=== PATIENT | male | born 1985 | race Caucasian/White ===

== ENCOUNTER 2018-11-11 10:42 | Observation (INO) | payer OTHER ==
[2018-11-11] MEDS ORDERED: ASPIRIN 81 MG PO STA (11:40)
[2018-11-11] MEDS ORDERED: NITROGLYCERIN OINT 1 INCH/GM PACKET TOPICAL STA (11:40)
--- NOTE | 2018-11-11 11:48 | ED ---
General Adult HPI - General Chief complaint: Chest Pain Stated complaint: chest pain/left arm Source: patient, RN notes reviewed Mode of arrival: wheelchair Limitations: no limitations - History of Present Illness Initial comments: Patient is a pleasant 32-year-old male presenting to the emergency Department with palpitations. Onset of symptoms was around a week ago. Symptoms have been intermittent. Symptoms were worse yesterday and this morning. Patient does feel like his discomfort is skipping. Patient does have some discomfort in his chest associated with this at times. Patient does feel near syncopal at times. Patient also has some mild discomfort relating to the left arm. No history of similar symptoms prior to this past week. No associated dyspnea or vomiting or diaphoresis. No leg pain or leg swelling. - Related Data Home Medications Medication Instructions Recorded Confirmed Ibuprofen [Motrin Ib] 400 mg PO Q6H PRN 11/11/18 11/11/18 Allergies Allergy/AdvReac Type Severity Reaction Status Date / Time No Known Allergies Allergy Verified 11/11/18 11:06 Review of Systems ROS Statement: Those systems with pertinent positive or pertinent negative responses have been documented in the HPI. ROS Other: All systems not noted in ROS Statement are negative. Constitutional: Denies: fever Eyes: Denies: eye pain ENT: Denies: ear pain Respiratory: Denies: cough Cardiovascular: Reports: chest pain, palpitations Endocrine: Denies: fatigue Gastrointestinal: Denies: abdominal pain Genitourinary: Denies: dysuria Musculoskeletal: Denies: back pain Skin: Denies: rash Neurological: Denies: weakness Past Medical History Past Medical History: No Reported History History of Any Multi-Drug Resistant Organisms: None Reported Past Surgical History: No Surgical Hx Reported Past Psychological History: No Psychological Hx Reported Smoking Status: Never smoker Past Alcohol Use History: Daily Past Drug Use History: None Reported General Exam Limitations: no limitations General appearance: alert, in no apparent distress Head exam: Present: atraumatic Eye exam: Present: normal appearance, PERRL ENT exam: Present: normal oropharynx Neck exam: Present: normal inspection Respiratory exam: Present: normal lung sounds bilaterally Cardiovascular Exam: Present: regular rate, normal rhythm Expanded Peripheral pulses: 2+: Radial (R), Radial (L) GI/Abdominal exam: Present: soft. Absent: tenderness Extremities exam: Present: normal inspection. Absent: pedal edema, calf tenderness Neurological exam: Present: alert Psychiatric exam: Present: normal affect, normal mood Skin exam: Present: normal color Course Vital Signs 11/11/18 11/11/18 11/11/18 10:51 11:22 12:30 Temperature 98.5 F Pulse Rate 71 62 Pulse Rate [ 50 L Ediphone Operator ] Respiratory 16 16 Rate Blood Pressure 108/70 117/71 O2 Sat by Pulse 100 100 Oximetry - Reevaluation(s) Reevaluation #1: 11/11/18 11:42 athletic monitor does show frequent PVCs. athletic monitor: Patient does have an event where his heart rhythm decreases to 46 on the monitor. This is sinus rhythm. Patient was placed on a potline monitor secondary to chest pain and to monitor for arrhythmias. EKG Findings - EKG Comments: EKG Findings:: Sinus rhythm at 66. PVC is present. IA 138. QRS 94. QT 416. QTC 436. Normal axis. Normal QRS. No acute ST change. Medical Decision Making - Medical Decision Making Patient reevaluated and symptom-free at this time. Patient and family updated on results and plan. Patient states he did have symptoms while in the emergency department when his heart rate dropped to 46. Case was discussed with Dr. reyes, covering for Dr. Alvarado, who will admit. Cardiology will be placed on consult. - Lab Data Result diagrams: 11/11/18 11:05 11/11/18 11:05 Lab Results 11/11/18 11/11/18 11/11/18 Range/Units 11:05 11:05 11:05 WBC 6.1 (3.8-10.6) k/uL RBC 5.22 (4.30-5.90) m/uL Hgb 15.6 (13.0-17.5) gm/dL Hct 46.7 (39.0-53.0) % MCV 89.4 (80.0-100.0) fL MCH 29.9 (25.0-35.0) pg MCHC 33.4 (31.0-37.0) g/dL RDW 12.8 (11.5-15.5) % Plt Count 218 (150-450) k/uL Neutrophils % 71 % Lymphocytes % 19 % Monocytes % 8 % Eosinophils % 2 % Basophils % 0 % Neutrophils # 4.3 (1.3-7.7) k/uL Lymphocytes # 1.1 (1.0-4.8) k/uL Monocytes # 0.5 (0-1.0) k/uL Eosinophils # 0.1 (0-0.7) k/uL Basophils # 0.0 (0-0.2) k/uL PT 10.7 (9.0-12.0) sec INR 1.0 (<1.2) APTT 25.8 (22.0-30.0) sec Sodium 142 (137-145) mmol/L Potassium 4.5 (3.5-5.1) mmol/L Chloride 107 (98-107) mmol/L Carbon Dioxide 25 (22-30) mmol/L Anion Gap 10 mmol/L BUN 19 (9-20) mg/dL Creatinine 1.02 (0.66-1.25) mg/dL Est GFR (CKD-EPI)AfAm >90 (>60 ml/min/1.73 sqM) Est GFR (CKD-EPI)NonAf >90 (>60 ml/min/1.73 sqM) Glucose 86 (74-99) mg/dL Calcium 9.9 (8.4-10.2) mg/dL Magnesium 2.0 (1.6-2.3) mg/dL Total Bilirubin 0.8 (0.2-1.3) mg/dL AST 21 (17-59) U/L ALT 30 (21-72) U/L Alkaline Phosphatase 58 (38-126) U/L Troponin I (0.000-0.034) ng/mL Total Protein 7.7 (6.3-8.2) g/dL Albumin 4.6 (3.5-5.0) g/dL TSH 3.640 (0.465-4.680) mIU/L Free T4 1.51 (0.78-2.19) ng/dL Free T3 pg/mL 3.5 (2.8-5.3) pg/ml 11/11/18 Range/Units 11:05 WBC (3.8-10.6) k/uL RBC (4.30-5.90) m/uL Hgb (13.0-17.5) gm/dL Hct (39.0-53.0) % MCV (80.0-100.0) fL MCH (25.0-35.0) pg MCHC (31.0-37.0) g/dL RDW (11.5-15.5) % Plt Count (150-450) k/uL Neutrophils % % Lymphocytes % % Monocytes % % Eosinophils % % Basophils % % Neutrophils # (1.3-7.7) k/uL Lymphocytes # (1.0-4.8) k/uL Monocytes # (0-1.0) k/uL Eosinophils # (0-0.7) k/uL Basophils # (0-0.2) k/uL PT (9.0-12.0) sec INR (<1.2) APTT (22.0-30.0) sec Sodium (137-145) mmol/L Potassium (3.5-5.1) mmol/L Chloride (98-107) mmol/L Carbon Dioxide (22-30) mmol/L Anion Gap mmol/L BUN (9-20) mg/dL Creatinine (0.66-1.25) mg/dL Est GFR (CKD-EPI)AfAm (>60 ml/min/1.73 sqM) Est GFR (CKD-EPI)NonAf (>60 ml/min/1.73 sqM) Glucose (74-99) mg/dL Calcium (8.4-10.2) mg/dL Magnesium (1.6-2.3) mg/dL Total Bilirubin (0.2-1.3) mg/dL AST (17-59) U/L ALT (21-72) U/L Alkaline Phosphatase (38-126) U/L Troponin I <0.012 (0.000-0.034) ng/mL Total Protein (6.3-8.2) g/dL Albumin (3.5-5.0) g/dL TSH (0.465-4.680) mIU/L Free T4 (0.78-2.19) ng/dL Free T3 pg/mL (2.8-5.3) pg/ml - Radiology Data Radiology results: report reviewed (Chest x-ray reported as no acute process. Unable to view films at this time.) Disposition Clinical Impression: Chest pain, Bradycardia Disposition: ADMITTED IP TO THIS HOSP Is patient prescribed a controlled substance at d/c from ED?: No Referrals: Renato Alvarado MD [Primary Care Provider] - 1-2 days Decision Time: 13:37
[2018-11-11 12:22] LABS: Basophils % (A) 0 %; Eosinophils # (A) 0.1 k/uL (0-0.7); Eosinophils % (A) 2 %; HCT 46.7 % (39.0-53.0); HGB 15.6 gm/dL (13.0-17.5); Lymphocytes # (A) 1.1 k/uL (1.0-4.8); Lymphocytes % (A) 19 %; MCH 29.9 pg (25.0-35.0); MCHC 33.4 g/dL (31.0-37.0); MCV 89.4 fL (80.0-100.0); Mean Platelet Volume 7.6; Monocytes # (A) 0.5 k/uL (0-1.0); Monocytes % (A) 8 %; Neutrophils # (A) 4.3 k/uL (1.3-7.7); Neutrophils % (A) 71 %; Platelet Count 218 k/uL (150-450); RBC 5.22 m/uL (4.30-5.90); RDW 12.8 % (11.5-15.5); WBC 6.1 k/uL (3.8-10.6)
[2018-11-11 12:29] LABS: ALT 30 U/L (21-72); AST 21 U/L (17-59); Albumin 4.6 g/dL (3.5-5.0); Alkaline Phosphatase 58 U/L (38-126); Anion Gap 10 mmol/L; Blood Urea Nitrogen 19 mg/dL (9-20); Calcium 9.9 mg/dL (8.4-10.2); Carbon Dioxide 25 mmol/L (22-30); Chloride 107 mmol/L (98-107); Glucose 86 mg/dL (74-99); Potassium 4.5 mmol/L (3.5-5.1); Sodium 142 mmol/L (137-145); Total Bilirubin 0.8 mg/dL (0.2-1.3); Total Protein 7.7 g/dL (6.3-8.2)
--- NOTE | 2018-11-11 12:44 | XR ---
EXAMINATION TYPE: XR chest 2V DATE OF EXAM: 11/11/2018 COMPARISON: NONE HISTORY: Dysrhythmia left arm weakness for one week. TECHNIQUE: Frontal and lateral views of the chest are obtained. FINDINGS: Overlying EKG leads are seen. There is no focal air space opacity, pleural effusion, or pne umothorax seen. The cardiac silhouette size is within normal limits. The osseous structures are in tact. IMPRESSION: No acute cardiopulmonary process.
[2018-11-11 12:45] LABS: T4, Free (Free Thyroxine) 1.51 ng/dL (0.78-2.19)
[2018-11-11 13:16] LABS: Partial Thromboplastin Time 25.8 sec (22.0-30.0); Prothrombin Time 10.7 sec (9.0-12.0)
[2018-11-11] MEDS ORDERED: NITROGLYCERIN SL TABS 0.4 MG TAB SUBLINGUAL PRN (13:38)
[2018-11-11] MEDS ORDERED: ACETAMINOPHEN TAB 325 MG TAB PO STA (18:31)
[2018-11-11 20:33] VITALS: BMI 28.0
--- NOTE | 2018-11-11 22:28 | HP ---
HISTORY AND PHYSICAL DATE OF ADMISSION: 11/11/2018 PRESENTING COMPLAINT: Palpitation, near syncope. HISTORY OF PRESENTING COMPLAINT: Pleasant 32-year-old patient of Dr. Renato Alvarado otherwise in good health. The patient 2 weeks ago was on vacation and felt palpitations. The patient went down to the [facility]. He was told he has PVCs and not to worry about it. The patient drinks a variable amount of alcohol and drinks quite a bit of energy drinks including monster. The patient's last 2 to 3 days started having episodes of nearly passing out, feeling fuzzy and therefore decided to come in. The patient found to have multiple PVCs though unifocal. Admitted for the same. The patient denies use of any other recreational drugs. The patient's heart rate was found to be in the 40s, but the patient has been extremely active, was very active in school and also worked in the [employer] and has got a very active in a physical job and is in good health otherwise. Several family members are present including his girlfriend, his daughter, his mother, uncle and aunt. REVIEW OF SYSTEMS: CONSTITUTIONAL: Tired. HEENT: None. CARDIOVASCULAR: As above GASTROINTESTINAL none. GENITOURINARY: None. MUSCULOSKELETAL none. DERMATOLOGICAL, HEMATOLOGIC, LYMPHATIC: none. PSYCHIATRY none. NEUROLOGICAL none. PAST MEDICAL HISTORY: None. SURGICAL HISTORY: None. PSYCH HISTORY: History of ADHD. SOCIAL HISTORY: The patient stopped smoking in 2012. Drinks a variable amount of alcohol and does a lot of energy drinks. The patient is employed. 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 Drives [employer]. FAMILY HISTORY: Of myocardial infarction. Father had heart disease. HOME MEDICATIONS: Motrin 400 mg q.6h p.r.n. ALLERGIES: None. PHYSICAL EXAMINATION: VITAL SIGNS: Temperature 98.4 pulse 46, respiration 18, blood pressure 113/71, pulse ox 100 percent on room air. GENERAL APPEARANCE: Average built, sitting up, comfortable. EYES: Pupils equal. Conjunctivae normal. External appearance of nose and ears normal. Oral cavity normal. NECK: JVD not raised. Mass not palpable. RESPIRATORY EFFORT: Normal. LUNGS are clear. CARDIOVASCULAR: 1st and 2nd sounds normal. No edema. ABDOMEN: Soft, nontender. Liver and spleen not palpable. Lymphatics: No lymph node palpable in the neck or axilla. PSYCHIATRY: Alert and oriented x3. Mood and affect normal. NEUROLOGICAL: Pupils equal. Cranial nerves grossly intact. Power and sensation grossly intact. INVESTIGATIONS: White count 6.1, hemoglobin 15.6, potassium 4.5, BUN and creatinine normal. Troponin times negative. TSH normal. EKG tracing personally reviewed by me shows multiple PVCs were unifocal. Chest x-ray film personally reviewed by me shows normal heart size and lung oropeza are clear. ASSESSMENT: 1. The patient with multiple PVCs symptomatic in a patient who does drink alcohol and has a lot of energy drinks including monster and these are symptomatic PVCs. 2. Physiological bradycardia in a patient who has been rather healthy and very active. PLAN: Patient will need a 2-D echocardiogram. The patient may need to use a p.r.n. small dose of beta emy given heart rate is running in the 40s. The patient and the family were advised at length to stop all aerosol stimulants, including any most extent and refrain from alcohol totally. We will get a cardiology opinion. If the patient's symptoms continue to be a problem, then patient may need EP study down the road. Copy to Dr. Alvarado. MMKATHE / MARYN: [id number] /
[2018-11-12 01:28] LABS: Cholesterol 198 mg/dL (<200); HDL Cholesterol 50 mg/dL (40-60); LDL Cholesterol,Calculated 122 mg/dL (0-99); Triglycerides 129 mg/dL (<150)
[2018-11-12] MEDS ORDERED: ASPIRIN 325 MG TAB PO SCH (09:00)
[2018-11-12 09:01] VITALS: RESP 18
--- NOTE | 2018-11-12 10:42 | P.CRDCN ---
History of Present Illness History of present illness: This is a pleasant 32-year-old male with no significant past medical history. He is a former smoker, quit 2012. He denies history of coronary artery disease, hypertension, dyslipidemia or diabetes mellitus. We have been asked to see him in consultation for chest pain. He states starting last week Thursday he started feeling frequent palpitations and fluttering in his chest. He woke up feeling that way with no specific aggravating factors. With each palpitation he also felt a tightening sensation in his chest, light headed and short of breath. Generally overall throughout the day he felt sluggish. He drank water and tried to take it easy through the day but the symptoms p persisted. [place] was [place] during that time so he decided to go to the hospital to be checked out. Per the patient he states he was hooked up to the monitor and told he is having PVCs and was discharged home. The symptoms have persisted since that time. He has no specific aggravating or alleviating factors. He states both his father and grandfather both had a history of premature coronary artery disease. EKG reveals sinus mechanism with frequent PVCs, trigeminy noted. Telemetry tracings reveal PVC's as well. Chest x-ray negative for an acute cardiopulmonary process. Laboratory data reviewed, WBC 6.1, hemoglobin 15.6, platelets 218, d-dimer less than 0.17, sodium 142, potassium 4.5, creatinine 1.02, magnesium 2.0, cardiac enzymes negative 3, LDL 122, HDL 50, TSH 3.64. He takes no daily cardiac medications. At the time of my exam: CONSTITUTIONAL: Denies fever. Denies chills. Complains of overall generalized weakness and fatigue. EYES: Denies blurred vision. Denies vision changes. Denies eye pain. EARS, NOSE, MOUTH & THROAT: Denies headache. Denies sore throat. Denies ear pain. CARDIOVASCULAR: Denies chest pain. Denies shortness of breath. Denies orthopnea. Denies PND. Complains of palpitations. RESPIRATORY: Denies cough. GASTROINTESTINAL: Denies abdominal pain. Denies diarrhea. Denies constipation. Denies nausea. Denies vomiting. MUSCULOSKELETAL: Denies myalgias. INTEGUMENTARY: Denies pruitis. Denies rash. NEUROLOGIC: Denies numbness. Denies tingling. Denies weakness. PSYCHIATRIC: Denies anxiety. Denies depression. ENDOCRINE: Denies fatigue. Denies weight change. Denies polydipsia. Denies polyurina. GENITOURINARY: Denies burning, hematuria or urgency with micturation. HEMATOLOGIC: Denies history of anemia. Denies bleeding. Blood pressure 101/59 heart rate 64 afebrile maintaining oxygen saturation on room air GENERAL: This is a 32-year-old male in no apparent distress at the time of my examination. HEENT: Head is atraumatic, normocephalic. Pupils are equal, round. Sclerae anicteric. Conjunctivae are clear. Mucous membranes of the mouth are moist. Neck is supple. There is no jugular venous distention. No carotid bruit is heard. LUNGS: Clear to auscultation no wheezes, rales or rhonchi. No chest wall tenderness is noted on palpation or with deep breathing. HEART: Regular rate and rhythm without murmurs, rubs or gallops. S1 and S2 heard. ABDOMEN: Soft, nontender. Bowel sounds are heard. No organomegaly noted. EXTREMITIES: No evidence of peripheral edema and no calf tenderness noted. VASCULAR: Radial and dorsalis pedis pulses palpated, no evidence of clubbing. NEUROLOGIC: Patient is awake, alert and oriented x3. ASSESSMENT Chest pain, atypical for angina. An acute coronary event has been ruled out. Palpitations, frequent PVCs noted on EKG PLAN An acute coronary event has been ruled out. Obtain 2D echocardiogram and doppler study to assess cardiac structure and function. Electrolytes and thyroid are normal. Perform exercise stress test to assess for PVC's at maximum exercise as well as stress induced ischemic changes on EKG. If stress test is normal he is stable for discharge with a 24-hr holter monitor to assess frequency of PVC's. Follow up in the office with Dr. Gómez in 2 weeks. Thank you kindly for this consultation. Nurse Practitioner note has been reviewed, I agree with a documented findings and plan of care. Patient was seen and examined. Past Medical History Past Medical History: No Reported History History of Any Multi-Drug Resistant Organisms: None Reported Past Surgical History: No Surgical Hx Reported Past Anesthesia/Blood Transfusion Reactions: Unable to Obtain Additional Past Anesthesia/Blood Transfusion Reaction / Comment(s): Pt. has never had surgery or blood transfusion Past Psychological History: ADD/ADHD Smoking Status: Former smoker Past Alcohol Use History: Daily Additional Past Alcohol Use History / Comment(s): Pt. states that he stopped smoking in 2012. He smoked about a pack per day. Past Drug Use History: None Reported - Past Family History Father Family Medical History: Chest Pain / Angina, Myocardial Infarction ([place]) Additional Family Medical History / Comment(s): Father has heart disease Medications and Allergies Home Medications Medication Instructions Recorded Confirmed Type Ibuprofen [Motrin Ib] 400 mg PO Q6H PRN 11/11/18 11/11/18 History Allergies Allergy/AdvReac Type Severity Reaction Status Date / Time No Known Allergies Allergy Verified 11/11/18 11:06 Physical Exam Vitals: Vital Signs Temp Pulse Pulse Resp BP BP Pulse Ox 11/12/18 03:54 98.5 F 90 16 118/72 100 11/12/18 03:37 62 16 11/11/18 23:59 62 16 11/11/18 23:46 98.3 F 62 16 125/76 99 11/11/18 20:00 46 L 18 11/11/18 19:49 98.4 F 46 L 18 113/71 100 11/11/18 19:00 98.0 F 84 18 116/76 99 11/11/18 18:34 70 16 124/69 100 11/11/18 16:45 69 14 99/66 100 11/11/18 15:41 67 16 115/79 100 11/11/18 12:30 62 16 117/71 100 11/11/18 11:22 50 L 11/11/18 10:51 98.5 F 71 16 108/70 100 Intake and Output 11/11/18 11/12/18 11/12/18 22:59 06:59 14:59 Other: # Voids 1 1 Results 11/11/18 11:05 11/11/18 11:05 Cardiac Enzymes 11/11/18 11/11/18 11/11/18 Range/Units 11:05 11:05 17:17 AST 21 (17-59) U/L Troponin I <0.012 <0.012 (0.000-0.034) ng/mL 11/11/18 Range/Units 23:23 AST (17-59) U/L Troponin I <0.012 (0.000-0.034) ng/mL Coagulation 11/11/18 Range/Units 11:05 PT 10.7 (9.0-12.0) sec APTT 25.8 (22.0-30.0) sec Lipids 11/11/18 Range/Units 11:05 Triglycerides 129 (<150) mg/dL Cholesterol 198 (<200) mg/dL HDL Cholesterol 50 (40-60) mg/dL CBC 11/11/18 Range/Units 11:05 WBC 6.1 (3.8-10.6) k/uL RBC 5.22 (4.30-5.90) m/uL Hgb 15.6 (13.0-17.5) gm/dL Hct 46.7 (39.0-53.0) % Plt Count 218 (150-450) k/uL Comprehensive Metabolic Panel 11/11/18 Range/Units 11:05 Sodium 142 (137-145) mmol/L Potassium 4.5 (3.5-5.1) mmol/L Chloride 107 (98-107) mmol/L Carbon Dioxide 25 (22-30) mmol/L BUN 19 (9-20) mg/dL Creatinine 1.02 (0.66-1.25) mg/dL Glucose 86 (74-99) mg/dL Calcium 9.9 (8.4-10.2) mg/dL AST 21 (17-59) U/L ALT 30 (21-72) U/L Alkaline Phosphatase 58 (38-126) U/L Total Protein 7.7 (6.3-8.2) g/dL Albumin 4.6 (3.5-5.0) g/dL Current Medications Generic Name Dose Route Start Last Admin Trade Name Darrickq PRN Reason Stop Dose Admin Aspirin 325 mg 11/12/18 09:00 Aspirin PO DAILY STACEY Nitroglycerin 0.4 mg 11/11/18 13:38 Nitrostat SUBLINGUAL Q5M PRN Chest Pain Sodium Chloride 10 ml 11/11/18 21:00 11/11/18 23:22 Saline Flush IV 10 ml BID STACEY Administration Intake and Output 11/11/18 11/12/18 11/12/18 22:59 06:59 14:59 Other: # Voids 1 1 11/11/18 11:05 11/11/18 11:05
[2018-11-12 12:16] VITALS: BP 104/70; PULSE 65; TEMP 98.2
--- NOTE | 2018-11-12 13:08 | EST ---
EXERCISE STRESS DATE OF SERVICE: 11/12/2018 AGE: 32 SEX: Male HT: 76 WT: 230 PROTOCOL: Shady STAGE: III DURATION OF EXERCISE: 9 minutes HEART RATE REST: 83 BLOOD PRESSURE REST: 115/74 MAXIMUM HEART RATE ACHIEVED: 164 MAXIMUM BLOOD PRESSURE: 169/68 85% MPHR: 161 100% MPHR: 189 METS: 10.3 INDICATIONS: Chest pain. CLINICAL INFORMATION: STRESS DATA: Pretesting physical examination showed a heart rate of 83, pressure is 115/74 mmHg. Baseline EKG showed sinus mechanism. The patient exercised on the treadmill according to Shady protocol for a total of a 9 minutes and achieved 10.3 METs. Max heart rate was 164, which is about 87% of maximum predicted heart rate. Maximum blood pressure was 169/86 mmHg. Clinically, the patient did not have any symptoms of chest pain or discomfort and the EKG did not show any significant ST or T- wave abnormalities concerning for ischemia. CONCLUSION: 1. Excellent exercise tolerance. 2. Normal EKG in response to exercise. 3. Essentially normal stress test for the patient. MMODL / IJN: [id number] /
--- NOTE | 2018-11-12 18:38 | ECHOF ---
Referral Reason:cp MEASUREMENTS -------- HEIGHT: 193.0 cm WEIGHT: 104.3 kg BP: 118/72 RVIDd: 3.2 cm (< 3.3) IVSd: 1.1 cm (0.6 - 1.1) LVIDd: 4.7 cm (3.9 - 5.3) LVPWd: 1.1 cm (0.6 - 1.1) IVSs: 1.4 cm LVIDs: 3.2 cm LVPWs: 1.4 cm LAESV Index (A-L): 18.98 ml/m Ao Diam: 2.9 cm (2.0 - 3.7) AV Cusp: 2.2 cm (1.5 - 2.6) LA Diam: 3.4 cm (2.7 - 3.8) EPSS: 0.5 cm MV E Josiah: 0.76 m/s MV DecT: 244 ms MV A Josiah: 0.61 m/s MV E/A Ratio: 1.25 RAP: 5.00 mmHg RVSP: 16.53 mmHg MV EF SLOPE: 160.96 mm/s (70 - 150) MV EXCURSION: 2.31 cm (> 18.000) FINDINGS -------- Resting bradycardia (HR<60bpm). This was a technically good study. The left ventricular size is normal. There is borderline concentric left ventricular hypertrophy. Overall left ventricular systolic function is low-normal with, an EF between 50 - 55 %. The right ventricle is normal in size and function. Normal LA size by volume 22+/-6 ml/m2. The right atrium is normal in size. The aortic valve is trileaflet, and appears structurally normal. No aortic stenosis or regurgitation. The mitral valve leaflets are mildly thickened. There is trace mitral regurgitation. Trace tricuspid regurgitation present. Right ventricular systolic pressure is normal at < 35 mmHg. There is no evidence of pulmonary hypertension. Trace/mild (physiologic) pulmonic regurgitation. The aortic root size is normal. Normal inferior vena cava with normal inspiratory collapse consistent with estimated right atrial pre ssure of 5 mmHg. There is no pericardial effusion. CONCLUSIONS -------- 1. Resting bradycardia (HR<60bpm). 2. This was a technically good study. 3. The left ventricular size is normal. 4. There is borderline concentric left ventricular hypertrophy. 5. Overall left ventricular systolic function is low-normal with, an EF between 50 - 55 %. 6. Normal LA size by volume 22+/-6 ml/m2. 7. The aortic valve is trileaflet, and appears structurally normal. No aortic stenosis or regurgitati on. 8. The mitral valve leaflets are mildly thickened. 9. There is trace mitral regurgitation. 10. Trace tricuspid regurgitation present. 11. Right ventricular systolic pressure is normal at < 35 mmHg. 12. There is no evidence of pulmonary hypertension. 13. Trace/mild (physiologic) pulmonic regurgitation. 14. The aortic root size is normal. 15. There is no pericardial effusion. HERPETOLOGY TEACHER: Jose Manuel Nolasco RDCS
--- NOTE | 2018-11-14 08:46 | DS ---
DISCHARGE SUMMARY DATE OF ADMISSION: November 11, 2018. DATE OF DISCHARGE: November 12, 2018. FINAL DIAGNOSES: 1. Multiple symptomatic PVCs precipitated by alcohol and energy drinks. 2. Physiological bradycardia in a patient who is otherwise very active. HOSPITAL COURSE: This patient presented with episodes of palpitation, near syncope. The patient does drink some alcohol and does energy drinks. The patient was seen by Cardiology, Dr. Gómez, who did 2D echocardiogram. Showed the EF of 50-55 percent, otherwise unremarkable. The patient also had a stress test that was negative. Did tell the nurse to get from Cardiology activity orders for discharge. On examination, temperature 98.2, pulse 64, respiratory 18, blood pressure 104/70, pulse ox 100 percent on room air. Lungs are clear. Cardiovascular: 1st and 2nd sounds normal. INVESTIGATION: Troponins are negative. TSH is normal. The patient is advised against use of alcohol or any form of energy drinks. The patient was cleared by Cardiology. DISCHARGE MEDICATIONS: Motrin 400 mg p.r.n. FOLLOW UP: Follow up with Dr. Gómez on November 30, 2018; follow up with Dr. Renato Alvarado in 3 days. MMODL / IJN: [id number] /
== END 2018-11-12 14:17 | disposition home or self-care (01) ==
LOC: EC 10:42 → 1SOBS 13:39
PROVIDERS: ADMIT Hospitalist; ATTEND Hospitalist
DX: I49.3 Ventricular premature depolarization (principal); R07.89 Other chest pain; F15.90 Other stimulant use, unspecified, uncomplicated; Z72.89 Other problems related to lifestyle; R00.8 Other abnormalities of heart beat; F90.9 Attention-deficit hyperactivity disorder, unspecified type; R55 Syncope and collapse; R42 Dizziness and giddiness; R06.02 Shortness of breath; Z87.891 Personal history of nicotine dependence; Z82.49 Family history of ischemic heart disease and other diseases of the circulatory system
CPT/HCPCS: 99285; 36415; 93005; 93017; 93225; 93226; 93306; 85379; 84439; 84481; 80061; 80053; 83735; 84443; 84484; 85025; 85610; 85730; 71046; G0378 ×2

== ENCOUNTER 2019-04-02 15:54 | Emergency (ER) | payer OTHER ==
[2019-04-02 16:34] VITALS: RESP 16
[2019-04-02 16:39] LABS: Basophils % (A) 0 %; Eosinophils # (A) 0.1 k/uL (0-0.7); Eosinophils % (A) 1 %; HCT 41.9 % (39.0-53.0); HGB 14.1 gm/dL (13.0-17.5); Lymphocytes # (A) 1.9 k/uL (1.0-4.8); Lymphocytes % (A) 28 %; MCH 28.7 pg (25.0-35.0); MCHC 33.6 g/dL (31.0-37.0); MCV 85.6 fL (80.0-100.0); Mean Platelet Volume 8.3; Monocytes # (A) 0.5 k/uL (0-1.0); Monocytes % (A) 7 %; Neutrophils # (A) 4.2 k/uL (1.3-7.7); Neutrophils % (A) 62 %; Platelet Count 227 k/uL (150-450); RDW 14.1 % (11.5-15.5); WBC 6.9 k/uL (3.8-10.6)
--- NOTE | 2019-04-02 16:51 | XR ---
EXAMINATION TYPE: XR chest 2V DATE OF EXAM: 04/02/2019 COMPARISON: 11/11/2018 HISTORY: Short of breath TECHNIQUE: Frontal and lateral views of the chest are obtained. FINDINGS: Heart and mediastinum are normal. Lungs are clear. Diaphragm is normal. Bony thorax appear s normal. There are chest leads. IMPRESSION: Normal chest. No change.
[2019-04-02 16:54] LABS: D-Dimer <0.17 mg/L FEU (<0.60); Partial Thromboplastin Time 25.3 sec (22.0-30.0); Prothrombin Time 10.7 sec (9.0-12.0)
--- NOTE | 2019-04-02 17:02 | ED ---
Chest Pain HPI - General Chief Complaint: Chest Pain Stated Complaint: SOB Time Seen by Provider: 04/02/19 16:19 Source: patient, RN notes reviewed, old records reviewed Mode of arrival: ambulatory Limitations: no limitations - History of Present Illness Initial Comments: This is a 31-year-old male the ER for evaluation. Patient resents today for evaluation of chest pain chest pain anxiety palpitations. PVCs history of PVCs. Patient states he is on any medication with PVCs as he is to lower heart rate. Patient has had prior evaluation by cardiology and 18. No intervention done at this point. Patient a symptomatically currently MD Complaint: chest pain, other (Anxiety and palpitations) -: hour(s) Onset: during rest, during exertion Pain Location: substernal Severity: mild Quality: other (Palpitations) Consistency: intermittent Improves With: nothing Anginal Symptoms: nausea Other Symptoms: palpitations Treatments Prior to Arrival: none - Related Data Home Medications Medication Instructions Recorded Confirmed No Known Home Medications 04/02/19 04/02/19 Allergies Allergy/AdvReac Type Severity Reaction Status Date / Time No Known Allergies Allergy Verified 04/02/19 16:52 Review of Systems ROS Statement: Those systems with pertinent positive or pertinent negative responses have been documented in the HPI. ROS Other: All systems not noted in ROS Statement are negative. EKG Findings - EKG Comments: EKG Findings:: EKG shows sinus bradycardia rate 48 [place] 144 QRS 94 QTc 362 Past Medical History Past Medical History: No Reported History Additional Past Medical History / Comment(s): PVC's History of Any Multi-Drug Resistant Organisms: None Reported Past Surgical History: No Surgical Hx Reported Past Anesthesia/Blood Transfusion Reactions: Unable to Obtain Additional Past Anesthesia/Blood Transfusion Reaction / Comment(s): Pt. has never had surgery or blood transfusion Past Psychological History: No Psychological Hx Reported Smoking Status: Former smoker Past Alcohol Use History: Occasional Past Drug Use History: None Reported - Past Family History Father Family Medical History: Chest Pain / Angina, Myocardial Infarction ([place]) Additional Family Medical History / Comment(s): Father has heart disease General Exam Limitations: no limitations General appearance: alert, in no apparent distress Head exam: Present: atraumatic, normocephalic, normal inspection Eye exam: Present: normal appearance, PERRL, EOMI. Absent: scleral icterus, conjunctival injection, periorbital swelling ENT exam: Present: normal exam, mucous membranes moist Neck exam: Present: normal inspection. Absent: tenderness, meningismus, lymphadenopathy Respiratory exam: Present: normal lung sounds bilaterally. Absent: respiratory distress, wheezes, rales, rhonchi, stridor Cardiovascular Exam: Present: regular rate, normal rhythm, normal heart sounds. Absent: systolic murmur, diastolic murmur, rubs, gallop, clicks GI/Abdominal exam: Present: soft, normal bowel sounds. Absent: distended, tenderness, guarding, rebound, rigid Extremities exam: Present: normal inspection, full ROM, normal capillary refill. Absent: tenderness, pedal edema, joint swelling, calf tenderness Back exam: Present: normal inspection Neurological exam: Present: alert, oriented X3, CN II-XII intact Psychiatric exam: Present: normal affect, normal mood Skin exam: Present: warm, dry, intact, normal color. Absent: rash Course Vital Signs 04/02/19 04/02/19 04/02/19 16:02 16:28 18:38 Temperature 98.7 F 98.0 F Pulse Rate 62 76 Respiratory 18 16 16 Rate Blood Pressure 104/66 116/73 O2 Sat by Pulse 100 99 Oximetry - Reevaluation(s) Reevaluation #1: Records reviewed Patient with occasional PVCs No current chest pain, spoke with patient at length, patient will like discharge, will continue follow-up with cardiology as directed Chest Pain MDM - MDM 33 male the ER with history of PVCs coming in with chest pain palpitations anxiety. Symptoms improved here currently. Patient is no acute findings and c an be discharged home Disposition Clinical Impression: Chest pain, Bradycardia, PVC (premature ventricular contraction) Disposition: HOME SELF-CARE Condition: Good Instructions (If sedation given, give patient instructions): Chest Pain (ED), Premature Ventricular Contractions (ED) Is patient prescribed a controlled substance at d/c from ED?: No Referrals: Renato Alvarado MD [Primary Care Provider] - 1-2 days
[2019-04-02 17:04] LABS: ALT 33 U/L (21-72); AST 22 U/L (17-59); African American GFR (CKD) >90 (>60 ml/min/1.73 sqM); Albumin 4.7 g/dL (3.5-5.0); Alkaline Phosphatase 56 U/L (38-126); Anion Gap 10 mmol/L; Blood Urea Nitrogen 22 mg/dL (9-20); Calcium 9.9 mg/dL (8.4-10.2); Carbon Dioxide 24 mmol/L (22-30); Chloride 107 mmol/L (98-107); Glucose 88 mg/dL (74-99); Potassium 3.8 mmol/L (3.5-5.1); Sodium 141 mmol/L (137-145); Total Bilirubin 0.5 mg/dL (0.2-1.3); Total Protein 7.6 g/dL (6.3-8.2)
[2019-04-02 18:39] VITALS: BP 116/73; PULSE 76; TEMP 98
== END 2019-04-02 18:38 | disposition home or self-care (01) ==
LOC: EC 15:54
DX: I49.3 Ventricular premature depolarization (principal); R00.1 Bradycardia, unspecified; Z87.891 Personal history of nicotine dependence
CPT/HCPCS: 36415; 71046; 80053; 83690; 83735; 83880; 84484; 85025; 85379; 85610; 85730; 93005; 99285

== ENCOUNTER 2019-05-02 | Emergency (ER) | payer OTHER ==
--- NOTE | 2019-05-02 11:37 | ED ---
General Adult HPI - General Chief complaint: Shortness of Breath Stated complaint: SOB/left arm & leg pain Time Seen by Provider: 05/02/19 10:55 Source: patient, RN notes reviewed Mode of arrival: ambulatory Limitations: no limitations - History of Present Illness Initial comments: This is a 33-year-old male who presents emergency Department stating he is has been having shortness of breath along with PVCs since October. 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 Patient states everything is shown to be normal. Patient states he has no more PVCs as of late but he still is waking up in the middle night feeling short of breath and feeling very nervous about going back to sleep. Patient states during the day especially when exerting himself or working he does not notice any shortness of breath. Patient occasionally says he did some chest tightness when he short of breath but currently he states he has no chest pain he had no chest pain today. Patient denies any shortness of breath currently but states he had it just prior to arrival but it has since resolved. Patient denies any recent fever chills or cough. Patient denies lightheadedness dizziness or nursing episode. Patient denies any calf pain or leg swelling. Patient states he spends a lot of time on the Internet trying to figure out what it is that is wrong with him. Patient currently is talking a mile a minute without any sign of being short of breath - Related Data Home Medications Medication Instructions Recorded Confirmed Ibuprofen [Motrin Ib] 400 mg PO Q6H PRN 05/02/19 05/02/19 Allergies Allergy/AdvReac Type Severity Reaction Status Date / Time No Known Allergies Allergy Verified 05/02/19 11:36 Review of Systems ROS Statement: Those systems with pertinent positive or pertinent negative responses have been documented in the HPI. ROS Other: All systems not noted in ROS Statement are negative. Past Medical History Past Medical History: No Reported History Additional Past Medical History / Comment(s): PVC's History of Any Multi-Drug Resistant Organisms: None Reported Past Surgical History: No Surgical Hx Reported Past Anesthesia/Blood Transfusion Reactions: Unable to Obtain Additional Past Anesthesia/Blood Transfusion Reaction / Comment(s): Pt. has never had surgery or blood transfusion Past Psychological History: Anxiety Smoking Status: Former smoker Past Alcohol Use History: Occasional Past Drug Use History: None Reported - Past Family History Father Family Medical History: Chest Pain / Angina, Myocardial Infarction ([place]) Additional Family Medical History / Comment(s): Father has heart disease General Exam - General Exam Comments Initial Comments: GENERAL: Patient is well-developed and well-nourished. Patient is nontoxic and well- hydrated and is in no acute distress. Patient appears very anxious ENT: Neck is soft and supple. No significant lymphadenopathy is noted. Oropharynx is clear. Moist mucous membranes. Neck has full range of motion without eliciting any pain. EYES: The sclera were anicteric and conjunctiva were pink and moist. Extraocular movements were intact and pupils were equal round and reactive to light. Eyelids were unremarkable. PULMONARY: Unlabored respirations. Good breath sounds bilaterally. No audible rales rhonchi or wheezing was noted. CARDIOVASCULAR: There is a regular rate and rhythm without any murmurs gallops or rubs. ABDOMEN: Soft and nontender with normal bowel sounds. SKIN: Skin is clear with no lesions or rashes and otherwise unremarkable. NEUROLOGIC: Patient is alert and oriented x3. Cranial nerves II through XII are grossly intact. Motor and sensory are also intact. Normal speech, volume and content. Symmetrical smile. MUSCULOSKELETAL: Normal extremities with adequate strength and full range of motion. LYMPHATICS: No significant lymphadenopathy is noted PSYCHIATRIC: Patient appears very anxious. Limitations: no limitations Course Vital Signs 05/02/19 10:45 Temperature 98.5 F Pulse Rate 66 Respiratory 18 Rate Blood Pressure 115/70 O2 Sat by Pulse 100 Oximetry Medical Decision Making - Medical Decision Making Patient's EKG shows sinus bradycardia at 46 bpm [place] interval is 140 QRS is 94 Q-T intervals 422 QTC is 369. Patient's EKG shows no ST segment elevation or depression. I compared this EKG to an old EKG no significant changes are noted. I did review all the patient's prior visits as well as labs and x-rays and found no abnormality. I spoke with the patient he states that the [facility] has suggested he get on an antianxiety medication and he has an appointment tomorrow to follow up with his primary. I suggest the follow-up with a pulmonary doctor to make sure his lung functions are okay and he will do that tomorrow. Patient is completely asymptomatic throughout his ED stay. Disposition Clinical Impression: Dyspnea Disposition: HOME SELF-CARE Condition: Good Instructions (If sedation given, give patient instructions): Dyspnea (ED) Is patient prescribed a controlled substance at d/c from ED?: No Referrals: [facility] [Primary Care Provider] - 1-2 days Time of Disposition: 12:17
== END 2019-05-02 13:25 | disposition home or self-care (01) ==
CPT/HCPCS: 93005; 99284